=== PATIENT | male | born 1975 ===

== ENCOUNTER 2017-02-25 17:38 | Emergency (ER) | payer MEDICAID ==
[2017-02-26 10:22] LABS: HEMATOCRIT 41.3 % (35.0-51.0); MEAN CELL VOLUME 90.3 fL (80.0-94.0); MEAN CORPUSCULAR HEMOGLOBIN 29.9 pg (27.0-31.0); MEAN CORPUSCULAR HGB CONC 33.2 g/dL (33.0-37.0); MEAN PLATELET VOLUME 9.3 fL (7.2-11.7); RED CELL DISTRIBUTION WIDTH 13.3 % (11.5-14.5); WHITE BLOOD COUNT 8.8 K/uL (4.8-10.8)
[2017-02-26 11:06] LABS: ALB/GLOB RATIO 1.2 (1.0-2.1); ALKALINE PHOSPHATASE 53 U/L (38-126); ALT/SGPT 20 U/L (21-72); AST/SGOT 29 U/L (17-59); BILIRUBIN,TOTAL 0.7 mg/dL (0.2-1.3); BLOOD UREA NITROGEN 20 mg/dL (9-20); CALCIUM 7.7 mg/dl (8.6-10.4); CARBON DIOXIDE 20 mmol/L (22-30); CHLORIDE 108 mmol/L (98-107); GFR AFRICAN-AMERICAN > 60; GLUCOSE,RANDOM 81 mg/dL (75-110); POTASSIUM 4.1 mmol/L (3.6-5.2); SODIUM 138 mmol/L (132-148); TOTAL PROTEIN 6.5 g/dL (6.3-8.3)
[2017-02-26 11:07] LABS: URINE BACTERIA RARE (<OCC); URINE BILIRUBIN NEGATIVE (NEGATIVE); URINE BLOOD NEGATIVE (NEGATIVE); URINE COLOR Yellow (YELLOW); URINE GLUCOSE (UA) NORMAL (Normal); URINE KETONE NEGATIVE (NEGATIVE); URINE LEUKOCYTE ESTERASE NEG Leu/uL (Negative); URINE PROTEIN NEGATIVE (NEGATIVE); URINE UROBILINOGEN NORMAL mg/dL (0.2-1.0); WBC URINE < 1 /hpf (0-5)
== END 2017-02-25 20:00 | disposition left against medical advice (07) ==
LOC: C.ER 17:38
DX: R10.31 Right lower quadrant pain (principal)
CPT/HCPCS: 80053; 81001; 83690; 85027; 96374; 96375; 99284; J2270; J2405

== ENCOUNTER 2017-08-04 16:45 | Emergency (ER) | payer MEDICAID ==
[2017-08-04] MEDS ORDERED: Sodium Chloride 0.9% 1,000 ML IV ONE (17:09)
[2017-08-04] MEDS ORDERED: Iohexol 240 (50 ml) PO STA (17:13)
[2017-08-04] MEDS ORDERED: Iohexol 240 (50 ml) ONE (17:23)
[2017-08-04] MEDS ORDERED: Sodium Chloride 0.9% 1,000 ML ONE (17:23)
[2017-08-04 17:41] LABS: BASO # 0.1 K/uL (0.0-0.2); EOS # 0.2 K/uL (0.0-0.7); EOS % 1.7 % (0.0-4.0); LYMPH # 2.4 K/uL (1.0-4.3); LYMPH % 25.5 % (20.0-40.0); MEAN CELL VOLUME 92.7 fL (80.0-94.0); MEAN CORPUSCULAR HEMOGLOBIN 31.8 pg (27.0-31.0); MEAN CORPUSCULAR HGB CONC 34.3 g/dL (33.0-37.0); MEAN PLATELET VOLUME 8.8 fL (7.2-11.7); MONO # 0.7 K/uL (0.0-0.8); RED CELL DISTRIBUTION WIDTH 13.4 % (11.5-14.5); WHITE BLOOD COUNT 9.3 K/uL (4.8-10.8)
[2017-08-04 17:47] LABS: RBC URINE < 1 /hpf (0-3); URINE BILIRUBIN NEGATIVE (NEGATIVE); URINE BLOOD NEGATIVE (NEGATIVE); URINE COLOR Yellow (YELLOW); URINE GLUCOSE (UA) NORMAL (Normal); URINE KETONE NEGATIVE (NEGATIVE); URINE LEUKOCYTE ESTERASE NEG Leu/uL (Negative); URINE PROTEIN NEGATIVE (NEGATIVE); URINE UROBILINOGEN NORMAL mg/dL (0.2-1.0); WBC URINE < 1 /hpf (0-5)
[2017-08-04 17:54] LABS: CALCIUM 8.3 mg/dl (8.6-10.4); GFR AFRICAN-AMERICAN > 60
[2017-08-04 18:05] LABS: ALB/GLOB RATIO 1.3 (1.0-2.1); ALKALINE PHOSPHATASE 50 U/L (38-126); ALT/SGPT 34 U/L (21-72); AST/SGOT 61 U/L (17-59); BILIRUBIN,TOTAL 1.3 mg/dL (0.2-1.3); BLOOD UREA NITROGEN 17 mg/dL (9-20); CARBON DIOXIDE 23 mmol/L (22-30); CHLORIDE 105 mmol/L (98-107); GLUCOSE,RANDOM 81 mg/dL (75-110); POTASSIUM 5.4 mmol/L (3.6-5.2); SODIUM 137 mmol/L (132-148)
--- NOTE | 2017-08-04 18:21 | C.PDOC ---
History Of Present Illness 42 y/o male presents to ED for evaluation of epigastric and RUQ abdominal pain. Pt states he had colon cancer in 2014 s/p small colon resection. Denies other complaints. Time Seen by Provider: 08/04/17 17:04 Chief Complaint (Nursing): Abdominal Pain History Per: Patient History/Exam Limitations: no limitations Onset/Duration Of Symptoms: Days Current Symptoms Are (Timing): Still Present Location Of Pain/Discomfort: RUQ, Epigastric Radiation Of Pain To:: None Quality Of Discomfort: "Pain" Exacerbating Factors: None Alleviating Factors: None Recent travel outside of the [place]: No Additional History Per: Patient Past Medical History Reviewed: Historical Data, Nursing Documentation, Vital Signs Vital Signs: Last Vital Signs Temp 98.2 F 08/04/17 16:48 Pulse 97 H 08/04/17 16:48 Resp 16 08/04/17 16:48 BP 134/81 08/04/17 16:48 Pulse Ox 98 08/04/17 18:24 - Medical History PMH: Malignancy (colon in remission since surgery 3 yrs ago ) Surgical History: Appendectomy Family History: States: Unknown Family Hx - Social History Hx Tobacco Use: Yes Hx Alcohol Use: Yes Hx Substance Use: No - Immunization History Hx Tetanus Toxoid Vaccination: (unk) Hx Influenza Vaccination: No Hx Pneumococcal Vaccination: (unk) Review Of Systems Except As Marked, All Systems Reviewed And Found Negative. Constitutional: Negative for: Fever, Chills, Weight loss Cardiovascular: Negative for: Chest Pain, Palpitations Respiratory: Negative for: Shortness of Breath Gastrointestinal: Positive for: Nausea, Vomiting, Abdominal Pain. Negative for : Diarrhea, Constipation Genitourinary: Negative for: Dysuria, Frequency, Hematuria Musculoskeletal: Negative for: Back Pain Physical Exam - Physical Exam Appears: Non-toxic, No Acute Distress Skin: Normal Color, Warm, Dry Head: Atraumatic, Normacephalic Eye(s): bilateral: Normal Inspection Oral Mucosa: Moist Neck: Normal ROM, Supple Chest: Symmetrical Cardiovascular: Rhythm Regular, No Murmur Respiratory: Normal Breath Sounds, No Rales, No Rhonchi, No Wheezing Gastrointestinal/Abdominal: Soft, Tenderness (epigastric tenderness (+) Mejia' s sign), No Guarding, No Rebound Back: No CVA Tenderness Extremity: Normal ROM Neurological/Psych: Oriented x3, Normal Speech ED Course And Treatment - Laboratory Results Result Diagrams: 08/04/17 17:35 08/04/17 17:35 Lab Interpretation: Abnormal (lipase 380H) O2 Sat by Pulse Oximetry: 98 Pulse Ox Interpretation: Normal Reevaluation Time: 18:21 Reassessment Condition: Improved Medical Decision Making Medical Decision Makin: epigastric discomfort for 3 days, lipase 380 c/w mild pancreatitis, h/o colon CA and colon resection [address] pending, consider pancreatitis or local CA recurrence/mets Signed over to next Tour MD Disposition - Disposition Disposition Time: 19:00 Condition: GOOD Forms: [facility] ([place]) - Clinical Impression Clinical Impression: Epigastric pain, Pancreatitis - Scribe Statement The provider has reviewed the documentation as recorded by the Chanellibfrances Merrill All medical record entries made by the Chanellibfrances were at my direction and personally dictated by me. I have reviewed the chart and agree that the record accurately reflects my personal performance of the history, physical exam, medical decision making, and the department course for this patient. I have also personally directed, reviewed, and agree with the discharge instructions and disposition. Physician Patient Turnover Patient Signed Over To: Nayana Schaeffer Handoff Comments: follow-up CT and dispo appropriately.
[2017-08-04] MEDS ORDERED: Iohexol 300 100 ML IJ ONE (19:22)
[2017-08-04 19:34] VITALS: BP 120/76; PULSE 60; RESP 18; TEMP 98; O2SAT 100
--- NOTE | 2017-08-04 20:42 | US ---
EXAM: US Abdomen Limited, Right Upper Quadrant CLINICAL HISTORY: 42 years old, male; Pain; Abdominal pain; Generalized; Additional info: Right upper quadrant pain TECHNIQUE: Real-time ultrasound of the right upper quadrant with image documentation. COMPARISON: CT - ABD PELVIS PO IV CONTRAST 2017-08-04 19:57 FINDINGS: Liver: Normal echogenicity. Few probable cysts, measuring up to 3.2 cm. No intrahepatic bile duct dilatation. Gallbladder: No gallstones. No wall thickening. No pericholecystic fluid. No sonographic Mejia's sign. Common bile duct: No dilatation. No stones. Pancreas: Unremarkable as visualized. Right kidney: Normal echogenicity. No hydronephrosis. IMPRESSION: 1.No acute findings. 2.Non-acute findings are described above.
--- NOTE | 2017-08-04 21:02 | CT ---
EXAM: CT Abdomen and Pelvis With Intravenous Contrast CLINICAL HISTORY: 42 years old, male; Pain and signs and symptoms; Nausea and vomiting; Abdominal pain; Generalized; Additional info: Ruq, h/o colon resction for ca TECHNIQUE: Axial computed tomography images of the abdomen and pelvis with intravenous contrast. All CT scans at this facility use one or more dose reduction techniques, viz.: automated exposure control; ma/kV adjustment per patient size (including targeted exams where dose is matched to indication; i.e. head); or iterative reconstruction technique. Coronal and sagittal reformatted images were created and reviewed. CONTRAST: 100 mL of omnipaque 300 administered intravenously. COMPARISON: CT - ABD PELVIS PO IV CONTRAST 2014-12-04 06:01 FINDINGS: Lower thorax: Several pulmonary nodules, up to 0.4 cm, most of which are stable. Nodule within LEFT upper lobe not visualized or imaged on previous examination. ABDOMEN: Liver: Several probable hepatic cysts. Gallbladder and bile ducts: No calcified stones. No ductal dilation. Pancreas: No ductal dilation. No mass. Spleen: No splenomegaly. Adrenals: No mass. Kidneys and ureters: No mass. No hydronephrosis. Stomach and bowel: Focal mucosal thickening versus underdistention of stomach, grossly stable. Postsurgical changes of sigmoid colon. No definite bowel wall thickening. No obstruction. Appendix: Appendectomy. PELVIS: Bladder: Unremarkable. Reproductive: Unremarkable as visualized. ABDOMEN and PELVIS: Intraperitoneal space: No significant fluid collection. No free air. Bones/joints: No acute fracture. Soft tissues: Unremarkable. Vasculature: Unremarkable. No aneurysm. Lymph nodes: No pathologically enlarged lymph nodes. IMPRESSION: 1. Mucosal thickening versus underdistention of stomach. Clinical correlation is needed. 2. Pulmonary nodules. For low-risk patients, no follow-up is necessary. For high-risk patients (smoking history or other known risk factors) an optional CT at 12 months could be performed. 3. Incidental/non-acute findings are described above.
== END 2017-08-04 22:08 | disposition home or self-care (01) ==
LOC: C.ER 16:45
DX: K85.90 Acute pancreatitis without necrosis or infection, unspecified (principal); R10.13 Epigastric pain; Z85.038 Personal history of other malignant neoplasm of large intestine
CPT/HCPCS: 74177; 76705; 80053; 80324; 80345; 80346; 80349; 80353; 80358; 80361; 81001; 83690; 83992; 85025; 96361; 96374; 96375; 96376; 99285; J1885; J2405; J7040; Q9966; Q9967